=== PATIENT | male | born 1995 | race Caucasian/White ===

== ENCOUNTER 2017-08-13 23:43 | Emergency (ER) | payer SELFPAY ==
[~2017-08-13] VITALS: Ht 182.9 cm; Wt 63.2 kg
[~2017-08-13 23:43] MED LIST: IBUP1TAB7 PO
[2017-08-13 23:54] VITALS: BP 155/108; PULSE 81; RESP 16; TEMP 99.8; O2SAT 99
--- NOTE | 2017-08-14 01:43 | PD ---
HPI Chief Complaint: Oral / Dental Pain or Problem Time Seen by Provider: 01:35 Travel History International Travel<30 days: No Contact w/Intl Traveler<30days: No Traveled to known affect area: No History of Present Illness HPI 22-year-old black male presents emergency department complaint of dental pain. He states that he has had a toothache now for 2 weeks. [facility] is a [employer] [facility] [employer]. He did not follow-up with the clinic or dentist. He states the pain is progressively getting worse. His mother advised him to come to the ER due to lack of insurance. Patient denies any fever chills. Pain is moderate. No alleviating factors. No exacerbating factors. Patient denies any fever chills, earache, sore throat. History Past Medical Histgory Medical History: Denies Significant Hx Tetanus Vaccination: < 5 Years Social History Alcohol Use: No Tobacco Use: No Allergies-Medications (Allergen,Severity, Reaction): Coded Allergies: No Known Allergies (Unverified Adverse Reaction, Unknown, 08/13/17) Reported Meds & Prescriptions Reported Meds & Active Scripts Active No Active Prescriptions or Reported Medications Review of Systems Except as stated in HPI: all other systems reviewed are Neg Physical Exam Narrative GENERAL: This is a well-nourished, well-developed patient, in no apparent distress. SKIN: No rashes, ecchymoses or lesions. Warm and dry. HEAD: Atraumatic. Normocephalic. EYES: PERRL, EOMI, no discharge or injection. No scleral icterus. EARS: Clear NOSE: Nasal turbinates appear normal. THROAT: Mucosa pink and moist. Airway patent. Patient has a large dental carry in tooth #17. Minimal gingival erythema. No facial swelling. Pain to percussion. NECK: Trachea midline. supple, moves head freely. LUNGS: Clear to auscultation. CV: Regular in rhythm. ABDOMEN: Soft nontender. EXT: No clubbing cyanosis or edema. Data Data Last Documented VS Vital Signs Date Time Temp Pulse Resp B/P (MAP) Pulse Ox O2 Delivery O2 Flow Rate FiO2 08/13/17 23:54 99.8 81 16 155/108 (124) 99 MDM Medical Screen Exam Complete: Yes Emergency Medical Condition: No Differential Diagnosis MDM: Moderate Differential diagnoses: Dental abscess, dental caries, osteitis, cellulitis Narrative Course A medical screening exam was performed: At the time of evaluation the presenting medical condition was determined not to be of an emergent nature. The patient was given the option of receiving additional care, but declined. Patient was given options for additional community resources from which to obtain care. The Patient Has Been advised to seek medical attention for their presenting complaint. The patient has been advised to return to the ER at any time if an emergent condition develops. Primary Impression: Encounter for medical screening examination Scripts No Active Prescriptions or Reported Meds Condition: [place] Jarrett Aug 14, 2017 01:42
== END 2017-08-14 02:27 | disposition left against medical advice (07) ==
LOC: NEPD 23:43
DX: K08.89 Other specified disorders of teeth and supporting structures (principal)
CPT/HCPCS: 99281